=== PATIENT | male | born 1970 | race Caucasian/White ===

== ENCOUNTER 2016-06-16 07:12 | Emergency (ER) | payer OTHER ==
[~2016-06-16] VITALS: Ht 170.2 cm; Wt 77.1 kg
[2016-06-16] MEDS ORDERED: MIRT15TA3 PO (07:27)
[2016-06-16] MEDS ORDERED: ALPR1TAB2 PO (07:27)
[2016-06-16] MEDS ORDERED: METO25TA62 PO (07:27)
[2016-06-16] MEDS ORDERED: METO-169 PO (07:41)
[2016-06-16] MEDS ORDERED: CLO01T PO (07:41)
[2016-06-16 07:53] LABS: Basophils # (auto) 0 uL; Basophils % (auto) 0.3 % (0.0-2.0); DEFINITIVE VIEW TRANSMISSION; Eosinophils # (auto) 0.1 uL; Eosinophils % (auto) 0.4 % (0.0-7.0); Hematocrit 41.2 % (41.0-53.0); Hemoglobin 13.2 g/dL (13.5-17.5); Lymphocytes # (auto) 1.6 uL; Lymphocytes % (auto) 10.3 % (10.0-50.0); Mean Corpuscular Hemoglobin 26.5 pg (28.0-32.0); Mean Corpuscular Volume 82.9 fL (80.0-100.0); Monocytes # (auto) 0.7 uL; Monocytes % (auto) 4.6 % (0.0-12.0); Neutrophils # (auto) 12.7 uL; Neutrophils % (auto) 84.4 % (37.0-80.0); Platelet Count (auto) 484 10^3/uL (140-450); Red Cell Distribution Width 14.1 % (11.6-16.0); White Blood Cell 15.1 10^3/uL (4.4-10.8)
[2016-06-16 07:56] LABS: Albumin 3.7 g/dL (3.4-5.0); Anion Gap 12 (5-15); Aspartate Aminotransferase 37 U/L (15-37); BUN/Creatinine Ratio 13.3; Blood Urea Nitrogen 11 mg/dL (7-18); Calcium 8.3 mg/dL (8.5-10.1); Carbon Dioxide 22 mmol/L (21-32); Chloride 107 mmol/L (98-107); GFR African American 128 mL/min; GFR Non-African American 106 mL/min; Glucose 109 mg/dL (74-106); Salicylate 2.3 mg/dL (2.8-20.0); Sodium 141 mmol/L (136-145)
[2016-06-16 07:58] LABS: Alkaline Phosphatase 44 U/L (45-117); Bilirubin, Total 0.1 mg/dL (0.2-1.0)
[2016-06-16 07:59] LABS: Acetaminophen < 2.0 ug/mL (10-30)
[2016-06-16 09:20] LABS: Urine Bilirubin Negative (Negative); Urine Blood Negative /uL (Negative); Urine Color Yellow (Yellow); Urine Glucose Normal (Normal); Urine Mucus FEW (None Seen); Urine Nitrite Negative (Negative); Urine RBC <1 /hpf (0 - 3); Urine Urobilinogen Normal (Negative)
[2016-06-16 09:21] LABS: Urine Ketone 1+ (Negative)
[2016-06-16] MEDS ORDERED: SODIUM CHLORIDE 0.9% 1,000 ML IV ONE (10:30)
[2016-06-17] MEDS ORDERED: ALPRAZolam 0.5 MG TAB PO PRN (09:30)
[2016-06-17] MEDS ORDERED: ALPRAZolam 0.5 MG TAB PO ONE (10:00)
[2016-06-17 10:10] VITALS: BP 118/74
== END 2016-06-17 10:20 | disposition short-term general hospital, planned readmission (82) ==
LOC: ER 07:18
DX: R45.851 Suicidal ideations (principal); F13.10 Sedative, hypnotic or anxiolytic abuse, uncomplicated; R41.82 Altered mental status, unspecified; F12.10 Cannabis abuse, uncomplicated; F17.210 Nicotine dependence, cigarettes, uncomplicated; G43.909 Migraine, unspecified, not intractable, without status migrainosus; G89.29 Other chronic pain; Z79.899 Other long term (current) drug therapy
CPT/HCPCS: 36415; 71010; 80053; 80320; 80329; 81001; 83735; 85025; 93005; 94761; 96360; 99285; G0434

== ENCOUNTER 2016-12-14 22:00 | Emergency (ER) | payer OTHER ==
[~2016-12-14] VITALS: Ht 170.2 cm; Wt 81.6 kg
[~2016-12-14 22:00] MED LIST: ALPR1TAB2 PO; CLO01T PO; METO-169 PO; MIRT15TA3 PO
[2016-12-14] MEDS ORDERED: LORAZEPAM MDV 2MG/ML 10 ML IV ONE (22:09)
[2016-12-14] MEDS ORDERED: SODIUM CHLORIDE 0.9% 1,000 ML IV ONE ×2 (22:21)
[2016-12-14] MEDS ORDERED: MIDAZOLAM HCL 1MG/1ML-2 ML VIAL ONE (22:26)
[2016-12-14] MEDS ORDERED: LORazepam 2MG/ML-1ML VIAL IV ONE ×2 (22:45)
[2016-12-14 22:49] LABS: Basophils # (auto) 0.1 uL; Basophils % (auto) 0.8 % (0.0-2.0); CONDITION Y; DEFINITIVE SEE PRINTOUT; Eosinophils # (auto) 0.1 uL; Eosinophils % (auto) 0.6 % (0.0-7.0); Hematocrit 42.4 % (41.0-53.0); Hemoglobin 13.7 g/dL (13.5-17.5); Lymphocytes # (auto) 5.6 uL; Lymphocytes % (auto) 38.3 % (10.0-50.0); Mean Corpuscular Hemoglobin 27.6 pg (28.0-32.0); Mean Corpuscular Hgb Conc. 32.3 g/dL (32.0-36.0); Mean Corpuscular Volume 85.5 fL (80.0-100.0); Mean Platelet Volume 7.4 fL (7.4-10.4); Monocytes % (auto) 7.1 % (0.0-12.0); Neutrophils # (auto) 7.8 uL; Neutrophils % (auto) 53.2 % (37.0-80.0); Platelet Count (auto) 479 10^3/uL (140-450); White Blood Cell 14.6 10^3/uL (4.4-10.8)
[2016-12-14 23:04] LABS: Partial Thromboplastin Time 25.9 sec (22.64-33.71); Prothrombin Time 10.9 sec (9.37-12.3)
[2016-12-14 23:15] LABS: Albumin 4.4 g/dL (3.4-5.0); Alkaline Phosphatase 42 U/L (45-117); Anion Gap 30 (5-15); Aspartate Aminotransferase 22 U/L (15-37); BUN/Creatinine Ratio 3.4; Bilirubin, Total 0.2 mg/dL (0.2-1.0); Blood Urea Nitrogen 6 mg/dL (7-18); Calcium 8.9 mg/dL (8.5-10.1); Chloride 102 mmol/L (98-107); GFR African American 53 mL/min; GFR Non-African American 44 mL/min; Glucose 156 mg/dL (74-106); Potassium 3.7 mmol/L (3.5-5.1); Sodium 139 mmol/L (136-145); Total Protein 8.6 g/dL (6.4-8.2)
[2016-12-14 23:24] LABS: Carbon Dioxide 7 mmol/L (21-32)
[2016-12-15 01:32] LABS: Urine Bilirubin Negative (Negative); Urine Blood 1+ /uL (Negative); Urine Color Colorless (Yellow); Urine Glucose Normal (Normal); Urine Hyaline Cast FEW /lpf (0 - 2); Urine Ketone 1+ (Negative); Urine Nitrite Negative (Negative); Urine RBC <1 /hpf (0 - 3); Urine Sperm PRESENT /hpf (None Seen); Urine Urobilinogen Normal (Negative); Urine pH 5.5 (5.0-8.0)
[2016-12-15 02:03] LABS: Allen Test Modified; Base Excess -4.1 mmol/L (-2.0-2.0); Blood 02Sat 95.4 % (96-100); Blood COHb 0.3 % (0.5-1.5); Blood MetHb 0.4 % (0.0-1.5); HCO3 19.7 mmol/L (22-26.0); HHb 4.6 % (0.0-5.0); MODE ROOM AIR; O2Hb 94.7 % (94.0-97.0); PCO2 32.3 mmHg (35.0-45.0); PCO2(T) 32.3 mmHg (35.0-45.0); PO2 88.5 mmHg (80.0-100.0); PO2(T) 88.5 mmHg (80.0-100.0); Sample Type Arterial; pH 7.403 (7.350-7.450)
[2016-12-15 03:13] VITALS: BP 138/91
== END 2016-12-15 03:29 | disposition short-term general hospital (02) ==
LOC: EDSEX 22:00 → EDBD 22:00 → ER 22:03
DX: G40.909 Epilepsy, unspecified, not intractable, without status epilepticus (principal); F10.231 Alcohol dependence with withdrawal delirium; E87.2 Acidosis; F17.210 Nicotine dependence, cigarettes, uncomplicated; R41.82 Altered mental status, unspecified
CPT/HCPCS: 36415; 36600; 70450; 71010; 80053; 80307; 80320; 81001; 82010; 82805; 83605; 84484; 85025; 85610; 85730; 96361; 96374; 96375; 99285; J2060; J2250; J7030

== ENCOUNTER 2021-08-27 11:46 | Emergency (ER) | payer OTHER ==
[~2021-08-27] VITALS: Ht 180.3 cm; Wt 102.1 kg
[~2021-08-27 11:46] MED LIST changes: -METO-169 PO; +METO-289 PO; -MIRT15TA3 PO; +MIRT1TAB38 PO
[2021-08-27] MEDS ORDERED: CEPH-509 PO (13:26)
[2021-08-27] MEDS ORDERED: IBUP800T27 PO (13:26)
[2021-08-27 13:29] VITALS: BP 132/91
== END 2021-08-27 13:34 | disposition home or self-care (01) ==
LOC: ER 11:46
DX: S02.2XXA Fracture of nasal bones, initial encounter for closed fracture (principal); S00.83XA Contusion of other part of head, initial encounter; F17.210 Nicotine dependence, cigarettes, uncomplicated; Z79.899 Other long term (current) drug therapy; Y04.2XXA Assault by strike against or bumped into by another person, initial encounter; Y93.89 Activity, other specified; Y92.89 Other specified places as the place of occurrence of the external cause; Y99.8 Other external cause status
CPT/HCPCS: 70486